=== PATIENT | male | born 1970 | race Caucasian/White ===

== ENCOUNTER 2023-07-07 12:55 | Outpatient (CLI) | payer OTHER ==
[~2023-07-07 12:55] MED LIST: GADOTERATE MEGLUMINE 10 MMOL/20 ML VIAL ONE
[2023-07-07] MEDS: GADOTERATE MEGLUMINE 10 MMOL/20 ML VIAL IVP ONE (15:09)
--- NOTE | 2023-07-09 15:06 | MRI Report ---
PROCEDURE: Abdomen W/WO INDICATIONS: ELEVATED FERRITIN CONTRAST: CLARISCAN 17.6 ML TECHNIQUE: Coronal ultra fast SE, axial 2D spoiled GE in- and [id number]; axial breath-hold T2 fast SE. Dynam ic axial ultra fast GE during the administration of contrast; post-contrast coronal ultra fast GE or 2D spoiled GE with fat saturation from the hepatic dome to the iliac crests. Optional diffusion weig hted imaging and ADC may be performed. COMPARISON: None. FINDINGS: Image quality: Excellent. Lung bases and heart: Unremarkable. Liver: No solid mass. Multiple hepatic cysts. Geographic hepatic steatosis mostly in the right lobe. Gallbladder and biliary tree: No radiopaque stones or wall thickening. No biliary dilation. Spleen: No splenomegaly. Normal signal on the opposed phase images. Pancreas: No pancreatic ductal dilation. Normal T1 signal. Adrenals: No adrenal nodule. Kidneys and ureters: No hydronephrosis. No renal cystic lesion which requires follow up. No solid mas s. Bowel and peritoneum: No bowel distension. No pathologic free fluid. Diverticulosis. Lymph nodes: No central or retroperitoneal adenopathy. Vessels: No infrarenal aortic aneurysm. Bones: No aggressive osseous abnormality. Other: No significant ventral hernia. IMPRESSION: Signal dropout on the opposed phase images in the right lobe of the liver consistent with geographic hepatic steatosis. No hemachromatosis demonstrated. No free fluid. No biliary or pancreatic ductal dilatation. Reviewed by: Terry Lopez MD on 07/09/2023 3:05 PM PST Approved by: Terry Lopez MD on 07/09/2023 3:05 PM PST Station ID: [id number]
== END 2023-07-07 12:56 | disposition home or self-care (01) ==
LOC: DI 12:55
PROVIDERS: ATTEND Obstetrics & Gynecology
DX: E83.119 Hemochromatosis, unspecified (principal)
CPT/HCPCS: 74183; A9575